=== PATIENT | female | born 1995 | race Two or more races ===

== ENCOUNTER → 2024-04-04 | Outpatient (CLI) | payer OTHER, MEDICAID, SELFPAY ==
--- NOTE | 2024-04-04 15:00 | XR_ITS ---
Examination: MRI left, without contrast Date and time of exam: April 04, 2021 at 1559 hrs. Indications: Left foot swelling and redness and pain stiffness instability 2 months post foot injury Technique: Multiple axial sagittal and coronal images of the left foot have been obtained with the Siemens high-resolution 1.5 [facility] MRI scanner. Images obtained include T2-weighted fat-suppressed sagittal sections, TR 3500, TE 46, T2 weighted coronal fat suppressed images, TR 3050, TE 84, T2-weighted transverse fat suppressed images, TR 3260, TE 63, proton density transverse images, TR 4720 TE 46, and T1 weighted coronal images, TR 560, TE 13. Findings: Mild biconvex thickening of the Achilles tendon. Mild plantar fasciitis Significant marrow edema mid and anterior talus Negative for sinus Tarsi syndrome Tendinitis posterior tibial peroneus longus and brevis tendons Mild sprain anterior talofibular ligament Impression: Recommend CT scan ankle follow-up to exclude microtrabecular fracture lines involving the talus
--- NOTE | 2024-04-04 15:30 | XR_ITS ---
Examination: MRI left ankle, without contrast Date and time of exam: April 04, 2024 at 1359 hrs. Indications: Left lateral ankle pain and swelling instability post injury 2 months ago Technique: Multiple axial sagittal and coronal images of the left ankle without intravenous contrast have been obtained with the Siemens high-resolution 1.5 [facility] MRI scanner. Images obtained include T2-weighted fat-suppressed sagittal sections, TR 3500, TE 46, T2 weighted coronal fat suppressed images, TR 3050, TE 84, T2-weighted transverse fat suppressed images, TR 3260, TE 63, proton density transverse images, TR 4720 TE 46, and T1 weighted coronal images, TR 560, TE 13. Findings: Biconvex thickening of the Achilles tendon Mild plantar fasciitis Abnormal marrow edema involving the mid and anterior talus with possible microtrabecular fracture lines Dome the talus is intact Negative for sinus Tarsi syndrome Anterior posterior inferior tibiofibular ligaments intact Moderate strain anterior talofibular ligament Tendinitis posterior tibial peroneus brevis and longus Extensor tendons intact Calcaneofibular ligament intact Impression: Bone contusion with possible microtrabecular fracture lines involving mid and anterior talus, recommend CT scan ankle without contrast follow-up to exclude fractures of the talus Achilles tendinosis Mild plantar fasciitis Moderate strain anterior talofibular ligament Tendinitis posterior tibial peroneus longus and brevis
== END | disposition home or self-care (01) ==
PROVIDERS: PCP Student in an Organized Health Care Education/Training Program; Referring Provider Otolaryngology; Visit Provider Otolaryngology
DX: S96.812A Strain of other specified muscles and tendons at ankle and foot level, left foot, initial encounter (principal); S90.02XA Contusion of left ankle, initial encounter; X58.XXXA Exposure to other specified factors, initial encounter; M76.822 Posterior tibial tendinitis, left leg; M72.2 Plantar fascial fibromatosis
CPT/HCPCS: 73718; 73721

== ENCOUNTER → 2024-05-06 | Outpatient (CLI) | payer OTHER, MEDICAID, SELFPAY ==
--- NOTE | 2024-05-06 | XR_ITS ---
Examination: CT left foot, without contrast. 2-D sagittal reconstructions. 2-D coronal reconstructions. 3-D reconstructions. Date and time of exam:May 06, 2024 1422 hours INDICATIONS: Patient fell January 2024 with injury to the foot, persistent foot pain, marrow edema in the mid anterior talus on MRI foot April 04, 2024 CTDI: vol (mGy):4.1 DLP: (mGycm):978 Technique: Multiple 1.25 mm axial sections of the right foot have been obtained. 2-D sagittal and coronal reconstructions have been obtained. 3-D reconstructions have been obtained. Low dose protocols were performed. One or more of the following dose reduction techniques were used; automated exposure control, adjustment of the mA and/or KV according to patient size, use of iterative reconstruction technique. Findings: Severe osteopenia Distal tibia and distal fibula intact No occult fracture involving the talus calcaneus, cuboid navicular or cuneiforms No Lisfranc tarsometatarsal dislocations Digits intact IMPRESSION: No foot fracture identified Follow-up plain films in one week as clinically warranted
--- NOTE | 2024-05-06 14:00 | XR_ITS ---
Examination: CT left ankle, without contrast. 2-D sagittal reconstructions. 2-D coronal reconstructions. 3-D reconstructions. Date and time of exam:May 06, 2024 1406 hours INDICATION: Patient fell February 06, 2024 with injury to the ankle, ankle pain. FINDINGS: MR ankle April 04, 2024 marrow edema in the anterior talus CTDI: vol (mGy):4.42 DLP: (mGycm):104 Technique: Multiple 1.25 mm axial sections of the left ankle have been obtained. 2-D sagittal and coronal reconstructions have been obtained. 3-D reconstructions have been obtained. Low dose protocols were performed. One or more of the following dose reduction techniques were used; automated exposure control, adjustment of the mA and/or KV according to patient size, use of iterative reconstruction technique. Findings: Intact distal tibia and distal fibula Talus on this study appears intact Calcaneus cuboid cuneiforms intact as well as navicular No Lisfranc tarsometatarsal dislocation IMPRESSION: No acute ankle fracture noted
== END | disposition home or self-care (01) ==
PROVIDERS: PCP Physician Assistant Medical; Referring Provider Otolaryngology; Visit Provider Otolaryngology
DX: S99.922A Unspecified injury of left foot, initial encounter (principal); W19.XXXA Unspecified fall, initial encounter
CPT/HCPCS: 73700

== ENCOUNTER → 2024-08-12 | Outpatient (CLI) | payer OTHER, MEDICAID, SELFPAY ==
--- NOTE | 2024-08-12 10:15 | XR_ITS ---
Examination: MRI left ankle, without contrast Date and time of exam: August 12, 2024 1047 hours INDICATIONS: Injury to the ankle January 31, 2024 with persistent medial ankle pain Technique: Multiple axial sagittal and coronal images of the left ankle have been obtained with the Siemens high-resolution 1.5 [facility] MRI scanner. Images obtained include T2-weighted fat-suppressed sagittal sections, TR 3500, TE 46, T2 weighted coronal fat suppressed images, TR 3050, TE 84, T2-weighted transverse fat suppressed images, TR 3260, TE 63, proton density transverse images, TR 4720 TE 46, and T1 weighted coronal images, TR 560, TE 13. Findings: No occult fracture bone contusion or marrow edema Negative for sinus Tarsi syndrome Biconvex Achilles tendon Plantar fascia unremarkable Anterior posterior inferior tibiofibular ligaments intact Moderate sprain posterior talofibular ligament Flexor tendons intact with mild tendinitis posterior tibial tendon Extensor tendons intact IMPRESSION: Achilles tendinosis Moderate sprain posterior talofibular ligament No occult fracture Mild tendinitis posterior tibial tendon
== END | disposition home or self-care (01) ==
LOC: SMRI 09:47
PROVIDERS: Referring Provider Otolaryngology; Visit Provider Otolaryngology
DX: S93.492A Sprain of other ligament of left ankle, initial encounter (principal); M76.822 Posterior tibial tendinitis, left leg; M76.62 Achilles tendinitis, left leg; X58.XXXA Exposure to other specified factors, initial encounter
CPT/HCPCS: 73721